=== PATIENT | male | born 1970 | race Caucasian/White ===

== ENCOUNTER 2017-10-21 18:36 | Inpatient (IN) | payer BC ==
[~2017-10-21] VITALS: Ht 180.3 cm; Wt 99.8 kg
[2017-10-21 18:54] VITALS: BP 131/76
--- NOTE | 2017-10-21 19:39 | NUR ---
PT TAKEN TO CT
--- NOTE | 2017-10-21 19:51 | NUR ---
PT RETURN TO THE ER LOBBY FROM CT
--- NOTE | 2017-10-21 19:59 | NUR ---
To bed 3.
--- NOTE | 2017-10-21 20:00 | NUR ---
PATIENT PRESENTS TO ED WITH PAIN ON RIGHT SIDE PAIN AND v X5. N/V/D; SKIN IS PINK/WARM/DRY; AAOX4 WITH EVEN AND STEADY GAIT; LUNGS CLEAR BL; HR EVEN AND REGULAR; PT DENIES CP, SOB, OR COUGH AT THIS TIME; PATIENT STATES PAIN OF 9/10 AT THIS TIME; VSS; PATIENT POSITIONED FOR COMFORT; HOB ELEVATED; BEDRAILS UP X2; BED DOWN. ER MD MADE AWARE OF PT STATUS.
[2017-10-21 20:16] LABS: BASOPHILS # (AUTO) 0.2 K/uL (0.00-0.22); BASOPHILS % (AUTO) 1.4 % (0.0-2.0); EOSINOPHILS # (AUTO) 0.1 K/uL (0-0.4); EOSINOPHILS % (AUTO) 0.8 % (0.0-4.0); HEMATOCRIT 48.6 % (36-52); HEMOGLOBIN 15.9 g/dL (12.0-18.0); LYMPHOCYTES # (AUTO) 0.3 K/uL (2.0-11.5); LYMPHOCYTES % (AUTO) 2.7 % (20.5-51.1); MEAN CORPUSCULAR HEMOGLOBIN 27 pg (27-31); MEAN CORPUSCULAR HGB CONC 33 g/dL (33-37); MEAN CORPUSCULAR VOLUME 83 fL (80-94); MONOCYTES % (AUTO) 0.3 % (1.7-9.3); NEUTROPHILS # (AUTO) 11.2 K/uL (1.8-7.7); NEUTROPHILS % (AUTO) 94.8 % (42.2-75.2); PLATELET COUNT (AUTO) 339 K/uL (140-450); RED BLOOD CELL COUNT(AUTO) 5.86 MIL/uL (4.20-6.10); RED CELL DISTRIBUTION WIDTH 11.5 % (11.6-13.7); WHITE BLOOD COUNT (AUTO) 11.8 K/uL (4.8-10.8)
--- NOTE | 2017-10-21 20:27 | NUR ---
Dr. Ramsey evaluating patient.
[2017-10-21 20:31] LABS: ANION GAP 17.2 (8-16); CARBON DIOXIDE 25.6 mmol/L (21-32); CREATININE 1.3 mg/dL (0.7-1.3); POTASSIUM 3.8 mmol/L (3.5-5.1)
[2017-10-21] MEDS ORDERED: PIPERACILLIN/TAZOBACTAM 3.375 GM in DEXTROSE 5% 50 ML IV ONE (20:35)
[2017-10-21] MEDS ORDERED: ONDANSETRON 4 MG/2 ML VIAL IVP ONE (20:35)
[2017-10-21] MEDS ORDERED: MORPHINE SULFATE 4 MG/ML SYR IVP ONE (20:35)
[2017-10-21 20:37] LABS: ALBUMIN 4.1 g/dL (3.4-5.0); TOTAL BILIRUBIN 2.1 mg/dL (0.0-1.0)
[2017-10-21] MEDS ORDERED: NACL 0.9% 1,000 ML IV ONE (20:40)
[2017-10-21] MEDS ORDERED: PIPERACILLIN/TAZOBACTAM 3.375 GM VIAL IV ONE (20:54)
[2017-10-21] MEDS ORDERED: ACETAMINOPHEN 325 MG TAB PO PRN (21:00)
[2017-10-21] MEDS ORDERED: KETOROLAC 30 MG/ML VIAL IVP PRN (21:00)
[2017-10-21] MEDS ORDERED: DOCUSATE SODIUM 100 MG GELCAP PO PRN (21:00)
[2017-10-21] MEDS ORDERED: MORPHINE SULFATE 4 MG/ML SYR IVP PRN (21:00)
--- NOTE | 2017-10-21 21:10 | NUR ---
X-Ray at bedside.
[2017-10-21 21:33] LABS: CHOL/HDL RATIO 4.9 (1-4.5); MAGNESIUM 1.8 mg/dL (1.8-2.4); PHOSPHORUS 1.7 mg/dL (2.5-4.9); THYROID STIMULATING HORMONE 0.53 uIU/mL (0.34-3.74)
[2017-10-21] MEDS ORDERED: ACETAMINOPHEN 325 MG TAB ONE (21:40)
[2017-10-21 21:41] LABS: PROTHROMBIN TIME 10.7 secs (10.8-13.4)
--- NOTE | 2017-10-21 21:43 | NUR ---
Patient will be admitted to care of DR DIETZ. Admited to TELE. Will go to [id number]. Belongings list completed. Report to EUNICE MAR .
[2017-10-21] MEDS: NACL 0.9% 1,000 ML IV SCH (22:01)
[2017-10-21 22:50] VITALS: BP 109/72
[2017-10-21] MEDS ORDERED: CLINDAMYCIN 600 MG/4 ML VIAL ONE (23:25)
[2017-10-21] MEDS ORDERED: MIDAZOLAM 2 MG/2 ML VIAL ONE (23:42)
--- NOTE | 2017-10-21 23:42 | NUR ---
PT. WHEELED OUT OF UNIT TO OR. CLINDAMYCIN IVP 600 MG. FOR 0000 ORDERED SENT WITH PT. AND GAVE TO OR TECH CELINE. PT. AWAKE AND ALERT. CONSENT SIGNED FOR LULU DURAN AND EXPLAINED PROCEDURE BY Ky CLINE
[2017-10-21] MEDS ORDERED: MEPERIDINE 50 MG/ML SYR ONE (23:43)
[2017-10-21] MEDS ORDERED: fentaNYL 0.05 MG/ML VIAL ONE (23:43)
[2017-10-21] MEDS ORDERED: ROCURONIUM 50 MG/5 ML VIAL IV ONE (23:45)
[2017-10-21] MEDS ORDERED: SUCCINYLCHOLINE CHLORIDE 200 MG/10 ML VIAL IVP ONE (23:45)
[2017-10-21] MEDS ORDERED: PROPOFOL 200 MG/20 ML VIAL IV ONE (23:45)
[2017-10-21] MEDS ORDERED: ONDANSETRON 4 MG/2 ML VIAL ONE (23:45)
[2017-10-21] MEDS ORDERED: SEVOFLURANE 250 ML BTL INH ONE (23:45)
[2017-10-21] MEDS ORDERED: DEXAMETHASONE 4 MG/ML VIAL ONE (23:45)
[2017-10-21] MEDS ORDERED: LACTATED RINGERS 1,000 ML IV SCH (23:47)
[2017-10-21] MEDS ORDERED: HYDROmorphone PFS 2 MG/ML SYR IVP PRN (23:50)
[2017-10-21] MEDS ORDERED: ONDANSETRON 4 MG/2 ML VIAL IVP PRN (23:50)
[2017-10-21] MEDS ORDERED: MEPERIDINE 25 MG/ML SYR IVP PRN (23:50)
[2017-10-21] MEDS ORDERED: diphenhydrAMINE 50 MG/ML VIAL IVP PRN (23:50)
[2017-10-22] VITALS (9 sets, daily range): BP systolic 108–137; BP diastolic 66–92
[2017-10-22] MEDS ORDERED: BUPIVACAINE-MPF 0.25% 30 ML VIAL INJ ONE (00:12)
[2017-10-22] MEDS ORDERED: MEPERIDINE 25 MG/ML SYR ONE (01:48)
--- NOTE | 2017-10-22 02:08 | NUR ---
RECEIVED REPORT FROM OR NURSE. PT RESTING COMFORTABLY IN BED, SPO2 93% ON O2 2L NC, RR 16 EVEN AND UNLABORED. PT HAD LAP APPY WITH 3 INCISIONS, [address], CLEAN DRY AND INTACT. VS NOTED, BP 125/78, HR 109, SPO2 93% ON O2 2L NC, RR 16, TEMP 98.9. PT C/O 6/10 TOLERABLE ABD AND BACK PAIN, PT WAS MEDICATED IN RECOVERY, WILL MONITOR. WAS NOTIFIED TO NOTIFY DR BERMUDEZ IF BP IS LOW, PRESCRIPTION IS ON THE CHART. WILL GIVE REPORT TO PT'S PRIMARY RN
--- NOTE | 2017-10-22 02:23 | NUR ---
RECEIVED PT. AWAKE AND ALERT, ORIENTED X 4 NO PAIN AT THIS TIME. SISTER IN HERE VISITING FROM OUT OF TOWN. CALL LIGHT WITH IN REACH. VS WITH IN NORMAL LIMITS.
[2017-10-22] MEDS: NACL 0.9% 1,000 ML IV SCH ×3 (03:44→15:41)
--- NOTE | 2017-10-22 03:46 | NUR ---
PT. COMPLAINED OF SURGICAL SITE PAIN. REQUESTED FOR MEDICATION AT THIS TIME. MEDICATED WITH DILAUDID 0.5 MG. ORDERED.A/O X 4.
--- NOTE | 2017-10-22 04:30 | NUR ---
PT. AM PERSONAL HYGIENE RENDERED BY CNAS. AWAKE AND ALERT. ABLE TO VERBALIZE SIMPLE NEEDS. NO COMPLAINTS AT THIS TIME. MEDICATED EARLIER FOR S/P LAP. APPY SITE PAIN. ABLE TO USE CALL LIGHT FOR HELP.
[2017-10-22] MEDS: CLINDAMYCIN 600 MG in DEXTROSE 5% 50 ML IV SCH ×3 (05:51)
--- NOTE | 2017-10-22 06:32 | NUR ---
ENCOURAGED PT. TO USE SPIROMETER FOR LUNG EXPANSION. NO SOB. NO PAIN AT THIS TIME. CALL LIGHT WITH IN REACH. NO BLEEDING TO SURGICAL SITE. VERBALIZING WELL.
[2017-10-22 07:08] LABS: HEMATOCRIT 41.3 % (36-52); HEMOGLOBIN 14.1 g/dL (12.0-18.0); MEAN CORPUSCULAR HEMOGLOBIN 28 pg (27-31); MEAN CORPUSCULAR HGB CONC 34 g/dL (33-37); MEAN CORPUSCULAR VOLUME 83 fL (80-94); PLATELET COUNT (AUTO) 285 K/uL (140-450); RED BLOOD CELL COUNT(AUTO) 4.98 MIL/uL (4.20-6.10); RED CELL DISTRIBUTION WIDTH 11.9 % (11.6-13.7); WHITE BLOOD COUNT (AUTO) 16.9 K/uL (4.8-10.8)
--- NOTE | 2017-10-22 07:17 | NUR ---
ENDORSED TO THE NEXT RN FOR CONTINUITY OF CARE. SLEEPING. WOKE UP EASILY WHEN TOUCHED . NO PAIN AT THIS TIME. SURGICAL SITE INTACT AND NO BLEEDING. TELEMETRY MONITORING.
--- NOTE | 2017-10-22 07:18 | NUR ---
RECEIVED REPORT FROM THE VISITOR SERVICE ASSISTANT NURSE FOR CONTINUITY OF CARE. PT IS AWAKE AND ORIENTED. INTRODUCED MYSELF AND UPDATED THE BOARD. S/P LAP APPENDECTOMY. 3 INCISION WITH BAND AIDS COVERING. IV ON L HAND 20G NS 140ML/HR. PT IS AMBULATORY. NO BM OR FLATUS OF YET. NC O2 2L. V/S WITHIN NORMAL RANGE. C/O OF PAIN 11/22. WILL MEDICATE WITH MORNING MEDS. PLAN FOR TODAY, AMBULATION AND CONTROL PAIN. WILL CONTINUE TO MONITOR PT.
--- NOTE | 2017-10-22 07:28 | NUR ---
INFORMED RESIDENT OF FLAGYL 500 MG IV THAT WAS PLACED IN THE NURSING ORDER FOR 0600. PRESENT RESIDENT MD RE-ORDERED IT UNDER MD ORDERS. INFORMED INCOMING RN FOR CHANGES. AWARE.
[2017-10-22 07:42] LABS: ANION GAP 14.4 (8-16); CARBON DIOXIDE 26.2 mmol/L (21-32); CREATININE 1.1 mg/dL (0.7-1.3); POTASSIUM 4.6 mmol/L (3.5-5.1)
[2017-10-22] MEDS ORDERED: metroNIDAZOLE 500 MG/NS PREMIX 100 ML IV SCH ×3 (08:15→13:00)
[2017-10-22] MEDS: HYDROcodone/APAP 7.5/325 MG 1 TAB PO PRN ×4 (08:18→21:26)
--- NOTE | 2017-10-22 08:20 | NUR ---
STUDENT RN AND INSTRUCTOR GAVE PAIN MED AND LEVAQUIN. PT TOLERATED WELL.
[2017-10-22] MEDS ORDERED: LEVOFLOXACIN 750 MG/D5W PREMIX 150 ML IV SCH ×2 (09:00)
[2017-10-22 09:22] LABS: LYMPHOCYTES % (MANUAL) 4 % (20-46); MONOCYTES % (MANUAL) 2 % (5-12)
--- NOTE | 2017-10-22 09:24 | NUR ---
ORDER FOR FLAGYL ONCE IS IN, THE MISSED 0600 DOSE. CALLED PHARMACIST. OK TO GIVE NOW AND PUSH BACK 1300 DOSE TO 1400. CURRENTLY LEVAQUIN IS GOING IN. WILL WAIT UNTIL IT FINISHES AND THEN HANG THE FLAGYL.
--- NOTE | 2017-10-22 09:28 | NUR ---
PATIENT HAS BEEN SCREENED AND CATEGORIZED MODERATE NUTRITION RISK. PATIENT WILL BE SEEN WITHIN 3-5 DAYS OF ADMISSION. 10/24/17-10/26/[address]
--- NOTE | 2017-10-22 10:10 | NUR ---
FINISHED LEVAQUIN. ADMINISTERED FLAGYL. TOLERATING WELL. PT NOW AMBULATING IN THE HALLWAY. TOLERATING WELL. WILL CONTINUE TO MONITOR PT.
--- NOTE | 2017-10-22 12:30 | NUR ---
TOOK SAMPLE OF URINE TO THE LAB.
[2017-10-22 13:36] LABS: APPEARANCE,URINE CLEAR (CLEAR); BILIRUBIN,URINE NEGATIVE (NEGATIVE); BLOOD, URINE 2+ (NEGATIVE); COLOR,URINE YELLOW (YELLOW); LEUKOCYTE ESTERASE ,URINE NEGATIVE (NEGATIVE); NITRITE, URINE NEGATIVE (NEGATIVE); UGLUCOSE NEGATIVE (NEGATIVE)
[2017-10-22 13:42] LABS: BARBITURATE, URINE NEG. ng/ml (NEG <=200); BENZODIAZEPINE, URINE POS. ng/mL (NEG <=200); CANNABINOID, URINE NEG. ng/mL (NEG <=50); COCAINE, URINE NEG. ng/mL (NEG <=300); OPIATE, URINE POS. ng/mL (NEG <=2000); PHENCYCLIDINE SCREEN,URINE NEG. ng/mL (NEG <=25)
--- NOTE | 2017-10-22 14:04 | NUR ---
PT FAMILY VISITING. NO SIGNS OF DISTRESS. WILL CONTINUE TO MONITOR PT.
--- NOTE | 2017-10-22 15:58 | NUR ---
PT SLEEPING SOUNDLY. NO SIGNS OF DISTRESS. WILL CONTINUE TO MONITOR PT.
[2017-10-22 16:24] LABS: RBC,URINE 11-20 (MOD) /HPF (0-5); WBC,URINE 0-5 (RARE) /HPF (0-5)
[2017-10-22] MEDS ORDERED: NACL 0.9% 500 ML IV SCH (18:40)
--- NOTE | 2017-10-22 19:25 | NUR ---
RECEIVED REPORT FROM DAY SHIFT NURSE. AAOX4. ON O2 AT 2 L/MIN. IV TO LEFT HAND #20G, NS AT 140 ML/HR. PT HAS ORDER FOR CT CHEST ANGIO WITH AND WITHOUT CONTRAST, CT ABDOMEN/PELVIS WITH CONTRAST. PT NEEDS ANOTHER IV LINE FOR THE PROCEDURE. INSERTED IV TO LEFT FA #20G, GOOD FLUSH AND BLOOD RETURN. NO C/O OF SOB AT THIS TIME. PT STATED HE HAS ABDOMINAL PAIN 5/10 BUT REFUSED PAIN MEDS AT THIS TIME. CALL LIGHT WITHIN REACH. WILL CONTINUE TO MONITOR.
--- NOTE | 2017-10-22 19:26 | NUR ---
PT HAS 3 ABDOMINAL INCISION WITH DRESSING. DRESSING CLEAN, DRY AND INTACT. NO BLEEDING NOTED.
--- NOTE | 2017-10-22 19:28 | NUR ---
PT HAS AN ORDER FOR NS 500 ML AND LOVENOX 40 MG SUBQ. NEED TO CLARIFY ORDERS WITH DR. BERMUDEZ. WILL PAGE DR. BERMUDEZ.
--- NOTE | 2017-10-22 19:30 | NUR ---
PAGED DR. BERMUDEZ. WAITING FOR CALL BACK.
--- NOTE | 2017-10-22 19:35 | NUR ---
RECEIVED CALL FROM DR. BERMUDEZ. ORDERED NS 500 ML BOLUS NOW. LOVENOX 40 MG SUBQ NOW THEN DAILY. DR. BERMUDEZ D/C ORDER FOR CT CHEST ANGIOGRAM, PT HAS NO SOB. V/S TAKEN, WNL. CALL LIGHT WITHIN REACH. WILL CONTINUE TO MONITOR.
--- NOTE | 2017-10-22 19:45 | NUR ---
PAGED DR. BERMUDEZ TO CLARIFY ORDER FOR CT ABDOMEN/PELVIS.
--- NOTE | 2017-10-22 19:48 | NUR ---
RECEIVED CALL FROM DR. BERMUDEZ. D/C ORDER FOR CT ABDOMEN/PELVIS WITH CONTRAST. TOÑO FROM CT MADE AWARE.
[2017-10-22] MEDS ORDERED: ENOXAPARIN 40 MG/0.4 ML SYR SUBQ ONE (20:44)
[2017-10-22] MEDS ORDERED: ENOXAPARIN 40 MG/0.4 ML SYR SUBQ SCH (21:00)
--- NOTE | 2017-10-22 21:30 | NUR ---
PT C/O PAIN 12/22. NORCO GIVEN ORDERED. PT STATED THAT HE'S HAVING A LITTLE BIT OF SOB. CHECKED V/S, WNL. O2 SAT 96% AT 2 L/MIN VIA NC. PT IS SITTING ON THE BED. WILL CONTINUE TO MONITOR.
--- NOTE | 2017-10-22 21:32 | NUR ---
PT STATED MENDEZ THE FEELS BETTER AND NO SOB. PT STILL SITTING ON THE BED. INSTRUCTED PT TO CALL ME IF HE HAS SOB AND PAIN. PT VERBALIZED UNDERSTANDING. WILL CONTINUE TO MONITOR. CALL LIGHT WITHIN REACH.
--- NOTE | 2017-10-22 21:40 | NUR ---
CHECKED ON PT. PT LYING ON BED. NO C/O SOB. ALL NEEDS MET AT THIS TIME. CALL LIGHT WITHIN REACH.
--- NOTE | 2017-10-22 23:45 | NUR ---
PT SLEEPING BUT EASILY AROUSABLE. NO S/S OF PAIN. NO S/S OF RESP DISTRESS NOTED. CALL LIGHT WITHIN REACH.
[2017-10-23] VITALS: BP 119/80
--- NOTE | 2017-10-23 00:05 | NUR ---
PT REFUSED IV ANTIBIOTIC ZOSYN. EXPLAINED TO PT THE USE OF ANTIBIOTIC BUT STILL REFUSED.
[2017-10-23] MEDS: NACL 0.9% 1,000 ML IV SCH ×4 (01:42→23:02)
--- NOTE | 2017-10-23 02:40 | NUR ---
PT LYING IN BED, AWAKE. NO C/O SOB OR PAIN NOTED. ALL NEEDS MET AT THIS TIME. CALL LIGHT WITHIN REACH.
[2017-10-23 04:00] VITALS: BP 122/78
[2017-10-23] MEDS ORDERED: PIPERACILLIN/TAZOBACTAM 4.5 GM VIAL IV ONE (04:54)
--- NOTE | 2017-10-23 05:00 | NUR ---
PT AWAKE, IN BED. NO C/O PAIN. NO RESPIRATORY DISTRESS NOTED. ALL NEEDS MET AT THIS TIME. CALL LIGHT WITHIN REACH.
[2017-10-23] MEDS: HYDROcodone/APAP 7.5/325 MG 1 TAB PO PRN ×5 (05:05→22:51)
[2017-10-23] MEDS: PIPERACILLIN/TAZOBACTAM 4.5 GM in DEXTROSE 5% 100 ML IV SCH ×6 (05:05→23:02)
[2017-10-23 06:59] LABS: BASOPHILS # (AUTO) 0.1 K/uL (0.00-0.22); BASOPHILS % (AUTO) 1.3 % (0.0-2.0); EOSINOPHILS # (AUTO) 0.1 K/uL (0-0.4); EOSINOPHILS % (AUTO) 0.9 % (0.0-4.0); HEMATOCRIT 38.4 % (36-52); HEMOGLOBIN 12.9 g/dL (12.0-18.0); LYMPHOCYTES % (AUTO) 9.3 % (20.5-51.1); MEAN CORPUSCULAR HEMOGLOBIN 28 pg (27-31); MEAN CORPUSCULAR HGB CONC 34 g/dL (33-37); MEAN CORPUSCULAR VOLUME 84 fL (80-94); MONOCYTES # (AUTO) 0.7 K/uL (0.8-1.0); MONOCYTES % (AUTO) 6.2 % (1.7-9.3); NEUTROPHILS # (AUTO) 8.7 K/uL (1.8-7.7); NEUTROPHILS % (AUTO) 82.3 % (42.2-75.2); PLATELET COUNT (AUTO) 218 K/uL (140-450); RED BLOOD CELL COUNT(AUTO) 4.59 MIL/uL (4.20-6.10); RED CELL DISTRIBUTION WIDTH 11.9 % (11.6-13.7); WHITE BLOOD COUNT (AUTO) 10.6 K/uL (4.8-10.8)
--- NOTE | 2017-10-23 07:25 | NUR ---
RECEIVED REPORT FROM NIGHTSHIFT NURSE. PATIENT IS ASLEEP BUT AROUSABLE AT THIS TIME. PATIENT A&OX4. PATIENT'S DRESSING IS DRY ON ABDOMEN. PATIENT HAS IV ACCESS ON LEFT FOREARM. PATIENT BREATHING IS WITHIN NORMAL LIMITS AND NO SIGNS OF RESPIRATORY DISTRESS OR RESPIRATORY DEPRESSION. UPDATED BOARD IN PATIENT'S ROOM. WILL CONTINUE TO MONITOR PATIENT.
--- NOTE | 2017-10-23 07:25 | NUR ---
ENDORSED PT TO DAY SHIFT NURSE. PT IN STABLE CONDITION.
[2017-10-23 08:00] VITALS: BP 119/83
[2017-10-23 08:20] LABS: CARBON DIOXIDE 25.8 mmol/L (21-32); CREATININE 0.9 mg/dL (0.7-1.3); POTASSIUM 3.8 mmol/L (3.5-5.1)
[2017-10-23] MEDS: ENOXAPARIN 40 MG/0.4 ML SYR SUBQ SCH (09:00)
[2017-10-23] MEDS ORDERED: ALBUTEROL SULFATE/IPRATROPIU 3 ML SOL IH PRN (10:35)
[2017-10-23 11:36] LABS: PHOSPHORUS 1.7 mg/dL (2.5-4.9)
--- NOTE | 2017-10-23 12:00 | NUR ---
PATIENT RESTING IN BED. NO SIGNS OF RESPIRATORY DISTRESS OR RESPIRATORY DEPRESSION. NO COMPLAINTS OF PAIN AT THIS TIME. WILL CONTINUE TO MONITOR PATIENT.
[2017-10-23] MEDS: ALBUTEROL SULFATE/IPRATROPIU 3 ML SOL IH SCH ×4 (12:15→23:00)
[2017-10-23 12:19] LABS: T4 (THYROXINE) 9.2 ug/dL (4.5-12.0)
--- NOTE | 2017-10-23 12:20 | NUR ---
PLACED PT BACK ON 2L N/C AFTER TX.
--- NOTE | 2017-10-23 13:10 | NUR ---
PATIENT SAYS, "I FEEL REALLY HOT." PATIENT DOES NOT WANT IV FLUIDS CONNECTED TO HIM. PROVIDED PATIENT WITH ICE PACKS TO COOL OFF. PATIENT'S ORAL TEMPERATURE IS 98.7. WILL CONTINUE TO MONITOR PATIENT.
--- NOTE | 2017-10-23 15:00 | NUR ---
PATIENT RESTING IN BED AT THIS TIME. NO SIGNS OF RESPIRATORY DISTRESS OR RESPIRATORY DEPRESSION. WILL CONTINUE TO MONITOR PATIENT.
--- NOTE | 2017-10-23 15:13 | NUR ---
FOUND PT OFF OF N/C AND WAS SATTING AT 91. GAVE PT TX THEN PLACED PT BACK ON 2L N/C NOW SATTING IN HIGH 90'S
[2017-10-23 16:00] VITALS: BP 121/85
--- NOTE | 2017-10-23 16:30 | NUR ---
PATIENT RESTING AT THIS TIME. PATIENT DOES NOT COMPLAIN OF PAIN. WILL CONTINUE TO MONITOR PATIENT.
[2017-10-23] MEDS: ONDANSETRON 4 MG/2 ML VIAL IM/IVP PRN (18:31)
--- NOTE | 2017-10-23 18:31 | NUR ---
PATIENT COMPLAINS OF NAUSEA AT THIS TIME. ADMINISTERED ANTIEMETIC MEDICATIONS TO PATIENT FOR NAUSEA.
--- NOTE | 2017-10-23 19:20 | NUR ---
GAVE PATIENT REPORT TO NIGHTSHIFT NURSE PATIENT IN STABLE CONDITION.
--- NOTE | 2017-10-23 19:21 | NUR ---
RECEIVED PT AWAKE ON BED, SEEN EARLIER ON THE HALLWAY AMBULATING ACCOMPANIED BY GIRLFRIEND, DENIES ABDOMINAL PAIN BUT COMPLAINING OF UPPER BACK PAIN, SAID CANT GET COMFORTABLE, REPOSITION TO LEFT SIDE AND SEMI-FOWLERS POSITION, SAT-95% ON ROOM AIR, NO SOB NOTED, ABDOMINAL DRESSING DRY AND INTACT, PT SAID HE IS PASSING GAS, WITH ACTIVE BOWEL SOUNDS, IVF INFUSING WELL, WILL ADMINISTER DUE ZOSYN IVPB, PLAN OF CARE DISCUSSED, CALL LIGHT WITHIN REACH.
[2017-10-23 20:00] VITALS: BP 140/85
--- NOTE | 2017-10-23 22:55 | NUR ---
PT SEEN AMBULATING ON THE HALLWAY, TOLERATING WELL, MEDICATED WITH NORCO AFTERWARDS, TOLERATING ORAL FLUIDS, VOIDING FREELY PER URINAL, MONITORED CLOSELY.
--- NOTE | 2017-10-23 23:26 | NUR ---
ORDER CHANGE Q4 PRN, PT BS ARE BILAT CLEAR, NO HX OR ASTHMA OR COPD.PT NEEDS IS, BUT HE SAID THAT HE DID IN THE MORNING.
[2017-10-24] VITALS: BP 144/92
--- NOTE | 2017-10-24 | NUR ---
PT SLEEPING, EASILY AROUSABLE, VITAL SIGNS STABLE, SAT-94% ON ROOM AIR, NO SOB NOTED, CONTINUE TO MONITOR CLOSELY.
[2017-10-24] MEDS: HYDROcodone/APAP 7.5/325 MG 1 TAB PO PRN ×6 (04:01→21:57)
[2017-10-24] MEDS: ONDANSETRON 4 MG/2 ML VIAL IM/IVP PRN ×2 (04:04→11:09)
--- NOTE | 2017-10-24 04:05 | NUR ---
PT AWAKE, COMPLAINING OF NAUSEA BUT NO VOMITING AND ABDOMINAL PAIN, MEDICATED PRN WITH NORCO AND ZOFRAN, VERBALIZED PASSING GAS, BAND AID X2 DRY AND INTACT, MONITORED CLOSELY.
[2017-10-24] MEDS: PIPERACILLIN/TAZOBACTAM 4.5 GM in DEXTROSE 5% 100 ML IV SCH ×3 (05:27→18:09)
[2017-10-24] MEDS: NACL 0.9% 1,000 ML IV SCH (05:28)
--- NOTE | 2017-10-24 06:31 | NUR ---
PT SEEN AMBULATING ON THE HALLWAY, TOLERATED WELL, VERBALIZED PASSING GAS BUT NO BM YET, IV ANTIBIOTIC INFUSING WELL.
[2017-10-24 06:58] LABS: BASOPHILS # (AUTO) 0.1 K/uL (0.00-0.22); BASOPHILS % (AUTO) 1.2 % (0.0-2.0); EOSINOPHILS # (AUTO) 0.1 K/uL (0-0.4); EOSINOPHILS % (AUTO) 1.1 % (0.0-4.0); HEMATOCRIT 38.8 % (36-52); HEMOGLOBIN 13.2 g/dL (12.0-18.0); LYMPHOCYTES # (AUTO) 0.9 K/uL (2.0-11.5); LYMPHOCYTES % (AUTO) 11.1 % (20.5-51.1); MEAN CORPUSCULAR HEMOGLOBIN 28 pg (27-31); MEAN CORPUSCULAR HGB CONC 34 g/dL (33-37); MEAN CORPUSCULAR VOLUME 82 fL (80-94); MONOCYTES # (AUTO) 0.6 K/uL (0.8-1.0); MONOCYTES % (AUTO) 7.2 % (1.7-9.3); NEUTROPHILS # (AUTO) 6.5 K/uL (1.8-7.7); NEUTROPHILS % (AUTO) 79.4 % (42.2-75.2); PLATELET COUNT (AUTO) 257 K/uL (140-450); RED BLOOD CELL COUNT(AUTO) 4.75 MIL/uL (4.20-6.10); RED CELL DISTRIBUTION WIDTH 11.6 % (11.6-13.7); WHITE BLOOD COUNT (AUTO) 8.2 K/uL (4.8-10.8)
--- NOTE | 2017-10-24 07:10 | NUR ---
RECEIVED PT REPORT AT BEDSIDE. PT ASLEEP BUT AROUSABLE. NO S/S OF DISTRESS. PT ON RA , NO SOB. IV LINE LEFT FOREARM INTACT WITH IVF INFUSING WELL. 3 INCISIONS ON ABDOMEN COVERED WITH BAND-AID, CLEAN DRY AND INTACT. BED LOWERED W CALL LIGHT IN REACH, WILL CONTINUE TO MONITOR
--- NOTE | 2017-10-24 07:25 | NUR ---
PT AWAKE, NO SIGNS OF DISTRESS, BEDSIDE REPORT GIVEN TO ZAID MENON FOR CONTINUITY OF CARE.
[2017-10-24 07:46] LABS: ANION GAP 11.1 (8-16); CARBON DIOXIDE 28.3 mmol/L (21-32); CREATININE 0.9 mg/dL (0.7-1.3); POTASSIUM 3.4 mmol/L (3.5-5.1)
[2017-10-24 08:00] VITALS: BP 121/77
[2017-10-24] MEDS: ENOXAPARIN 40 MG/0.4 ML SYR SUBQ SCH (08:50)
[2017-10-24] MEDS ORDERED: IBUP-2213 PO (08:55)
[2017-10-24] MEDS ORDERED: ONDA4ODT1 SL (08:55)
[2017-10-24] MEDS ORDERED: DOCU-299 PO (08:55)
[2017-10-24] MEDS ORDERED: ACET-9529 PO (08:55)
--- NOTE | 2017-10-24 09:30 | NUR ---
PT AMBULATED AROUND THE UNIT NO S/S OF DISTRESS NOTED
--- NOTE | 2017-10-24 14:06 | NUR ---
CM NOTE INITIAL REVIEW FAXED TO [facility] [employer] / FAX# [phone]
[2017-10-24 16:00] VITALS: BP 145/89
--- NOTE | 2017-10-24 17:45 | NUR ---
PT POTASSIUM WAS 3.4, DR RODNEY NOTIFIED PATIENT TOOK SHOWER, WILL CONTINUE W PLAN OF CARE
--- NOTE | 2017-10-24 19:30 | NUR ---
SEEN PT AWAKE, ALERT AND ORIENTED APPEARS COMFORTABLE. PT IS ON ISOLATION FOR MDRO/ESBL OF BLOOD. ISOLATION PRECAUTION REINFORCED. PT DENIES ANY NEEDS AT THIS TIME. SAFETY ENSURED. CALL LIGHT W/IN REACH.
--- NOTE | 2017-10-24 19:37 | NUR ---
PT REPORT GIVEN AT BEDSIDE. PT IN STABLE CONDITION
[2017-10-24 20:00] VITALS: BP 143/86
--- NOTE | 2017-10-24 21:57 | NUR ---
STUDENT NURSE CHECKED PT'S VITAL SIGNS EARLIER. SEEN PT AWAKE ASKING FOR PAIN MEDICINE. INITIAL ASSESSMENT DONE. IV ON LEFT FOREARM APPEARS RED, PUFFY. IVF STOPPED. WILL INSERT NEW IV. NORCO PO GIVEN ORDERED. TEACHINGS PROVIDED. PT STATES HIS LAST BM WAS WHEN HE WAS ADMITTED. OFFERED STOOL SOFTENER BUT SAID "IN THE MORNING". PT ASKED IF HE USES HIS INCENTIVE SPIROMETER. HE SAID "YES". ASKED HOW MUCH DOES HE GO UP TO. PT SAID "1500 AND SOMETIMES 1000." PT AWARE THAT HE NEEDS TO USE IT 10 TIMES EVERY HR WHILE AWAKE. PT DENIES ANY OTHER NEEDS RIGHT NOW. CALL LIGHT W/IN REACH.
--- NOTE | 2017-10-25 00:25 | NUR ---
SEEN PT APPEARS ASLEEP BUT EASILY AROUSABLE. NEW IV IN PLACED ON LEFT HAND G22 W/ GOOD BLOOD RETURN. PT TOLERATED PROCEDURE. IVPB ATB GIVEN ORDERED W/ TEACHINGS. PT SAID HE WENT TO THE BATHROOM SEVERAL TIMES.
[2017-10-25] MEDS: PIPERACILLIN/TAZOBACTAM 4.5 GM in DEXTROSE 5% 100 ML IV SCH ×4 (00:47→19:01)
[2017-10-25] MEDS: HYDROcodone/APAP 7.5/325 MG 1 TAB PO PRN ×3 (03:24→20:11)
[2017-10-25 04:00] VITALS: BP 141/87
--- NOTE | 2017-10-25 04:05 | NUR ---
SEEN PT AWAKE. VITAL SIGNS CHECKED. PT COMPLAINING OF FEELING NAUSEOUS. PT MEDICATED W/ ZOFRAN IVP ORDERED W/ TEACHINGS. PT'S URINAL EMPTIED W/ 200ML. PT KEPT COMFORTABLE.
[2017-10-25] MEDS: ONDANSETRON 4 MG/2 ML VIAL IM/IVP PRN ×2 (04:14→08:55)
[2017-10-25] MEDS ORDERED: IBUPROFEN 600 MG TAB PO PRN (06:50)
--- NOTE | 2017-10-25 07:00 | NUR ---
SEEN PT AMBULATING THE HALLWAY. SAFETY ENSURED.
[2017-10-25 07:16] LABS: BASOPHILS # (AUTO) 0.2 K/uL (0.00-0.22); BASOPHILS % (AUTO) 2.1 % (0.0-2.0); EOSINOPHILS # (AUTO) 0.2 K/uL (0-0.4); EOSINOPHILS % (AUTO) 2.3 % (0.0-4.0); HEMATOCRIT 40.7 % (36-52); HEMOGLOBIN 13.7 g/dL (12.0-18.0); LYMPHOCYTES # (AUTO) 1.7 K/uL (2.0-11.5); LYMPHOCYTES % (AUTO) 20.2 % (20.5-51.1); MEAN CORPUSCULAR HEMOGLOBIN 28 pg (27-31); MEAN CORPUSCULAR HGB CONC 34 g/dL (33-37); MEAN CORPUSCULAR VOLUME 83 fL (80-94); MONOCYTES # (AUTO) 0.7 K/uL (0.8-1.0); MONOCYTES % (AUTO) 8.4 % (1.7-9.3); NEUTROPHILS # (AUTO) 5.7 K/uL (1.8-7.7); PLATELET COUNT (AUTO) 325 K/uL (140-450); RED BLOOD CELL COUNT(AUTO) 4.93 MIL/uL (4.20-6.10); RED CELL DISTRIBUTION WIDTH 11.8 % (11.6-13.7); WHITE BLOOD COUNT (AUTO) 8.5 K/uL (4.8-10.8)
[2017-10-25 07:18] LABS: ANION GAP 11.6 (8-16); CARBON DIOXIDE 28.8 mmol/L (21-32); POTASSIUM 3.4 mmol/L (3.5-5.1)
--- NOTE | 2017-10-25 07:25 | NUR ---
RECEIVED PATIENT REPORT. PATIENT AWAKE WATCHING TELEVISION. NO S/S OF DISTRESS. NO C/O PAIN AT THIS TIME. ABD INCISION WITH CUATE CLEAN, DRY, EVENT PROMOTIONS COORDINATOR. CALL LIGHT WITHIN REACH. WILL CONTINUE TO MONITOR
[2017-10-25 08:00] VITALS: BP 138/92
[2017-10-25] MEDS: ENOXAPARIN 40 MG/0.4 ML SYR SUBQ SCH (09:02)
[2017-10-25] MEDS ORDERED: POTASSIUM CHLORIDE 20% 40 MEQ/15 ML UDC GT SCH (09:24)
--- NOTE | 2017-10-25 11:30 | NUR ---
PATIENT AMBULATING AROUND THE UNIT. NO S/S OF DISTRESS NOTED
--- NOTE | 2017-10-25 13:36 | NUR ---
RECEIVED A CALL FROM NAYELY FROM [employer]. SHE SAID THE CM IS SEEMA. PHONE [phone]. FAX IS [phone]. REF #[id number]. I FAXED INITIAL AND CONCURRENT REVIEWS.
--- NOTE | 2017-10-25 15:00 | NUR ---
PATIENT ASLEEP IN BED. NO S/S OF DISTRESS NOTED
[2017-10-25 16:00] VITALS: BP 145/92
--- NOTE | 2017-10-25 18:50 | NUR ---
PT IS NOT IN THE ROOM
--- NOTE | 2017-10-25 19:24 | NUR ---
PATIENT REPORT GIVEN AT BEDSIDE. PATIENT ENDORSED IN STABLE CONDITION
--- NOTE | 2017-10-25 20:00 | NUR ---
Patient's Plan of Care was discussed and reviewed with ENGINEER TECHNICAL STAFF: JORGE ALBERTO SIMONS.
--- NOTE | 2017-10-25 20:13 | NUR ---
RECD. SITTING ON CHAIR, WATCHING TV. A/OX4. RESPIRATION EVEN AND UNLABORED. IV OF NS AT TKO INFUSING AT 10 ML/HR, LEFT HAND G22. INCISION IN THE ABDOMEN (3), WITH CUATE, OPEN TO AIR, DRY AND CLEAN. ALREADY PASSING GAS BUT NO BM YET, ENCOURAGED TO AMBULATE MORE. PAIN IN THE SITE 08/24, STATED TOLERABLE, WILL CALL NURSE WHEN PAIN INCREASES. PLAN OF CARE FOR THE SHIFT DISCUSSED. VERBALIZED UNDERSTANDING.
[2017-10-26] VITALS: BP 119/69
--- NOTE | 2017-10-26 00:25 | NUR ---
AMBULATED IN THE HALLWAY FOUR TIMES.
[2017-10-26] MEDS: PIPERACILLIN/TAZOBACTAM 4.5 GM in DEXTROSE 5% 100 ML IV SCH ×4 (00:48→17:36)
--- NOTE | 2017-10-26 05:05 | NUR ---
AMBULATED SEVERAL TIMES IN THE HALLWAY.
[2017-10-26] MEDS: ONDANSETRON 4 MG/2 ML VIAL IM/IVP PRN (05:25)
--- NOTE | 2017-10-26 05:25 | NUR ---
NAUSEATED, MEDICATED WITH ZOFRAN 4 MF. IVP BY ZAID SWIFT.
[2017-10-26] MEDS: HYDROcodone/APAP 7.5/325 MG 1 TAB PO PRN ×3 (05:29→23:51)
--- NOTE | 2017-10-26 05:55 | NUR ---
NO NAUSEA NOTED, RESTING COMFORTABLY IN BED.
--- NOTE | 2017-10-26 06:57 | NUR ---
CONDITION REMAIN STABLE. WILL ENDORSE TO AM NURSE FOR CONTINUITY OF CARE.
--- NOTE | 2017-10-26 07:15 | NUR ---
RECEIVED REPORT FROM AM CERTIFIED COMPOSITES TECHNICIAN NURSE AT BEDSIDE FOR CONTINUITY OF CARE.PT IN BED SLEEPING. NO ACUTE DISTRESS NOTED. A/O X 4.PLAN OF CARE DISCUSSED WITH PATIENT. CALL LIGHT WITH IN REACH. PT. DENIES ANY PAIN AT THIS TIME.CALL LIGHT WITHIN REACH. PATIENT WITH IV TO LEFT HAND 22G APPEAR TO BE INFILTRATED .CERTIFIED COMPOSITES TECHNICIAN NURSE TO START NEW LINE. PATENT AND INTACT. WILL CONT TO MONITOR.
--- NOTE | 2017-10-26 07:30 | NUR ---
RIGHT HAND 20G IV STARTED X 1 ATTEMPT. TOLERATED WELL. WILL CONT TO MONITOR.
[2017-10-26 08:00] VITALS: BP 151/91
[2017-10-26] MEDS: POTASSIUM CHLORIDE 20% 40 MEQ/15 ML UDC GT SCH (09:17)
[2017-10-26] MEDS: ENOXAPARIN 40 MG/0.4 ML SYR SUBQ SCH (09:20)
--- NOTE | 2017-10-26 09:25 | NUR ---
ADMINISTERED MORNING MEDICATION SCHEDULED. PT TOLERATED WELL. PATIENT AMBULATING INDEPENDENTLY THROUGH HALLS TOLERATED. WILL CONT TO MONITOR PT.
--- NOTE | 2017-10-26 11:00 | NUR ---
PATIENT IN GOOD SPIRITS AMBULATING AROUND HALLS OF [facility]. NO C/O PAIN. WILL CONT TO MONITOR PT.
--- NOTE | 2017-10-26 12:58 | NUR ---
ADMINISTERED IV ZOSYN ORDERED. PATIENT TOLERATED WELL. IV SITE PATENT AND INTACT. WILL CONT TO MONITOR.
--- NOTE | 2017-10-26 14:02 | NUR ---
FAXED CONCURRENT REVIEW TO [facility] [phone] PHONE SEEMA [phone] X [phone]
--- NOTE | 2017-10-26 15:00 | NUR ---
PATIENT ALERT AND ABLE TO MAKE NEEDS KNOWN. NO ACUTE DISTRESS NOTED. CALL LIGHT WITHIN REACH. WILL CONT TO MONITOR PT. ENCOURAGE PT TO CONTINUE WALKING.
--- NOTE | 2017-10-26 15:08 | NUR ---
10/26/2017 RD INITIAL ASSESSMENT COMPLETED PLEASE REFER TO NUTRITION ASSESSMENT UNDER CARE ACTIVITY FOR ESTIMATED NUTRITIONAL NEEDS. CONTINUE REGULAR DIET TOLERATED. NURSING AND DIETARY STAFF TO ENCOURAGE INCREASED PO INTAKE TOLERATED. RD TO FOLLOW-UP IN 3-5 DAYS PATIENT IS MODERATE RISK. ROGELIO SMITH, KISHA
[2017-10-26 16:00] VITALS: BP 131/92
--- NOTE | 2017-10-26 17:45 | NUR ---
ADMINISTERED NORCO 7.5/325 ORDERED PRN FOR 7/10 ACHING PAIN TO INCISION SITES. PATIENT TOLERATED WELL. CALL LIGHT WITHIN REACH. WILL CONT TO MONITOR.
--- NOTE | 2017-10-26 18:45 | NUR ---
REASSESSED PT PAIN LEVEL STATED 3/10 AND IMPROVED. NORCO ADMINISTRATION EFFECTIVE. WILL CONT TO MONITOR PT.
--- NOTE | 2017-10-26 19:24 | NUR ---
ENDORSED REPORT TO CNA HHA NURSE AT BEDSIDE FOR CONTINUITY OF CARE.
--- NOTE | 2017-10-26 19:25 | NUR ---
RECD. RESTING IN BED, AWAKE, A/OX4. STATED FEELING MUCH BETTER TODAY. RESPIRATION EVEN AND UNLABORED. INCISION IN THE ABDOMEN (3) WITH CUATE, OPEN TO AIR, ALL DRY AND INTACT. VOIDING WELL, PASSING GAS BUT NO BM YET, SUGGESTED PRUNE JUICE BUT DOES NOT WANT IT. WILL INFORM MD. PAIN IN THE ABDOMEN 08/24, WILL MEDICATE ORDERED. PLAN OF CARE FOR THE SHIFT DISCUSSED. VERBALIZED UNDERSTANDING.
--- NOTE | 2017-10-26 21:00 | NUR ---
AMBULATED IN THE HALLWAY FOR 15 MINUTES.
[2017-10-26] MEDS ORDERED: MAGNESIUM HYDROXIDE 2400 MG/30 ML UDC PO PRN (21:10)
[2017-10-27] VITALS: BP 125/65
[2017-10-27] MEDS: PIPERACILLIN/TAZOBACTAM 4.5 GM in DEXTROSE 5% 100 ML IV SCH ×4 (00:04→17:59)
--- NOTE | 2017-10-27 00:05 | NUR ---
IV ABX STARTED. IV TO R HAND NOTED. INTACT AND PATENT. WILL CONTINUE TO MONITOR.
--- NOTE | 2017-10-27 01:00 | NUR ---
SLEEPING COMFORTABLY IN BED.
--- NOTE | 2017-10-27 06:10 | NUR ---
IV ABX STARTED. IV TO R HAND NOTED. INTACT AND PATENT. WILL CONTINUE TO MONITOR.
--- NOTE | 2017-10-27 07:08 | NUR ---
ABLE TO SLEEP WELL. ALL NEEDS ATTENDED. WILL ENDORSE TO AM NURSE FOR CONTINUITY OF CARE.
--- NOTE | 2017-10-27 07:25 | NUR ---
RECEIVED REPORT AT BEDSIDE FROM DIE REPAIR MACHINIST NURSE FOR CONTINUITY OF CARE.
--- NOTE | 2017-10-27 08:00 | NUR ---
INITIAL ASSESSMENT DONE. PATIENT ALERT AND ABLE TO VERBALIZE NEEDS. NO ACUTE DISTRESS NOTED. RESP EVEN AND UNLABORED. PATIENT WITH ACTIVE BOWEL SOUNDS. PATIENT VERBALIZED HE HAD A BM THIS AM. PATIENT WITH IV TO R HAND 22G SL PATENT AND INTACT. PATIENT WITH 3 ABD INCISION WITH CUATE INTACT. NO SWELLING REDNESS OR DRAINAGE.. PATIENT VERBALIZED PAIN AT THIS TIME NORCO TO BE GIVEN. PLAN OF CARE DISCUSSED WITH PATIENT. CALL LIGHT WITHIN REACH. WILL CONT TO MONITOR.
[2017-10-27] MEDS: ONDANSETRON 4 MG/2 ML VIAL IM/IVP PRN (08:07)
[2017-10-27] MEDS: HYDROcodone/APAP 7.5/325 MG 1 TAB PO PRN ×2 (08:07→16:46)
--- NOTE | 2017-10-27 08:07 | NUR ---
ADMINISTERED NORCO ORDERED PRN. PT TOLERATED WELL. Addendum: 10/27/17 at 2013 by Ariella Frances RN ALSO ADMINISTERED ZOFRAN . PT C/O NAUSEA.
[2017-10-27] MEDS: POTASSIUM CHLORIDE 20% 40 MEQ/15 ML UDC GT SCH (09:24)
[2017-10-27] MEDS: ENOXAPARIN 40 MG/0.4 ML SYR SUBQ SCH (09:28)
--- NOTE | 2017-10-27 09:28 | NUR ---
ADMINISTERED SCHEDULED MEDICATIONS ORDERED. PT TOLERATED WELL. WILL CONT TO MONITOR PT.
[2017-10-27] MEDS ORDERED: POTASSIUM CHLORIDE 10 MEQ TABER PO SCH (11:00)
--- NOTE | 2017-10-27 11:41 | NUR ---
ADMINISTERED ZOSYN ORDERED PATIENT TOLERATED WELL. IV LINE PATENT AND INTACT.
[2017-10-27] MEDS: SODIUM PHOS / POTASSIUM PHOS 1 PKT PDR PO SCH ×2 (13:31→17:58)
--- NOTE | 2017-10-27 13:31 | NUR ---
ADMINISTERED NEUTRAPHOS TO PATIENT ORDERED. EXPLAINED TO PATIENT REASON FOR MEDICATION PATIENT VERBALIZED UNDERSTANDING AND AGREEMENT.
--- NOTE | 2017-10-27 14:09 | NUR ---
0900 RECEIVED CALL FROM TEDDY AT [facility] AND STATED THAT AUTHORIZATION HAS BEEN EXTENDED FROM 10/26 THROUGH 10/28/17 FOR PT TO COMPLETE IV ANTIBIOTIC THERAPY.
[2017-10-27 16:00] VITALS: BP 116/77
--- NOTE | 2017-10-27 16:30 | NUR ---
PATIENT ALERT AND ABLE TO MAKE NEEDS KNOWN. NO ACUTE DISTRESS. PATIENT AMBULATING IN HALLWAYS OF UNIT. GAIT STEADY. PT IN GOOD SPIRITS. WILL CONT TO MONITOR PT.
--- NOTE | 2017-10-27 17:59 | NUR ---
ADMINISTERED ZOSYN ORDERED PATIENT TOLERATED WELL. IV LINE PATENT AND INTACT.
--- NOTE | 2017-10-27 19:19 | NUR ---
ENDORSED REPORT TO WATERSHED ENGINEER NURSE AT BEDSIDE FOR CONTINUITY OF CARE. PATIENT STABLE.
--- NOTE | 2017-10-27 19:20 | NUR ---
RECEIVED FROM AM RN IN BED AWAKE AND ALERT. NO COMPLAINT OF ANY PAIN AT THIS TIME. NO SOB. CALL LIGHT WITH IN REACH AND CARE PLANS FOR THE NIGHT DISCUSSED WITH PT. A/O X 4. ABLE TO VERBALIZE SIMPLE NEEDS WELL. NEEDS WILL BE ANTICIPATED AND WILL BE MET. DX. APPENDICITIS. S/P LAP APPY. PT. SEEN AMBULATING WELL IN THE HALLWAY.
--- NOTE | 2017-10-27 22:29 | NUR ---
STILL AWAKE AT THIS TIME. SITTING UP IN BED WATCHING TV. NO COMPLAINTS DONE AT THIS TIME. CALL LIGHT WITH IN REACH AND A/O X 4. NO BLEEDING TO LAP. APPY SITE.
[2017-10-28] MEDS: PIPERACILLIN/TAZOBACTAM 4.5 GM in DEXTROSE 5% 100 ML IV SCH ×5 (00:05→23:42)
[2017-10-28] MEDS: HYDROcodone/APAP 7.5/325 MG 1 TAB PO PRN ×2 (00:05→05:54)
[2017-10-28 00:11] VITALS: BP 126/83
--- NOTE | 2017-10-28 04:40 | NUR ---
SLEEPING STILL. NO RESTLESSNESS. NO COMPLAINTS. CALL LIGHT AT BEDSIDE ALL THE TIME.
[2017-10-28 05:54] VITALS: BP 128/83
[2017-10-28 07:01] LABS: BASOPHILS # (AUTO) 0.2 K/uL (0.00-0.22); BASOPHILS % (AUTO) 1.9 % (0.0-2.0); EOSINOPHILS # (AUTO) 0.3 K/uL (0-0.4); HEMATOCRIT 41.5 % (36-52); LYMPHOCYTES # (AUTO) 2.8 K/uL (2.0-11.5); LYMPHOCYTES % (AUTO) 32.6 % (20.5-51.1); MEAN CORPUSCULAR HEMOGLOBIN 28 pg (27-31); MEAN CORPUSCULAR HGB CONC 34 g/dL (33-37); MEAN CORPUSCULAR VOLUME 83 fL (80-94); MONOCYTES # (AUTO) 0.7 K/uL (0.8-1.0); MONOCYTES % (AUTO) 8.2 % (1.7-9.3); NEUTROPHILS # (AUTO) 4.7 K/uL (1.8-7.7); NEUTROPHILS % (AUTO) 53.3 % (42.2-75.2); PLATELET COUNT (AUTO) 386 K/uL (140-450); RED CELL DISTRIBUTION WIDTH 11.6 % (11.6-13.7); WHITE BLOOD COUNT (AUTO) 8.7 K/uL (4.8-10.8)
--- NOTE | 2017-10-28 07:12 | NUR ---
RECEIVED REPORT FROM BEEF TAGGER RN AT BEDSIDE FOR CONTINUITY OF CARE, PATIENT AOX4. DENIES PAIN AT THE MOMENT, R HAND IV INTACT, PATENT, AND ASYMPTOMATIC, SALINE LOCKED. UPDATED BOARD. UPDATED PATIENT WITH PLAN OF CARE FOR THE DAY, PATIENT VERBALIZED UNDERSTANDING. SAFETY AND ISOLATION PRECAUTION IN PLACE, CALL LIGHT WITHIN REACH, WILL CONTINUE TO MONITOR PATIENT.
[2017-10-28 07:24] LABS: ANION GAP 11.3 (8-16); CARBON DIOXIDE 30.4 mmol/L (21-32); CREATININE 1.2 mg/dL (0.7-1.3); POTASSIUM 4.7 mmol/L (3.5-5.1)
[2017-10-28 08:00] VITALS: BP 119/87
[2017-10-28 08:15] LABS: MAGNESIUM 1.9 mg/dL (1.8-2.4); PHOSPHORUS 3.8 mg/dL (2.5-4.9)
[2017-10-28] MEDS: ENOXAPARIN 40 MG/0.4 ML SYR SUBQ SCH (09:00)
[2017-10-28] MEDS: SODIUM PHOS / POTASSIUM PHOS 1 PKT PDR PO SCH (09:37)
--- NOTE | 2017-10-28 09:37 | NUR ---
ADMINISTERED ORDERED MEDICATIONS. PATIENT REFUSED LOVENOX BECAUSE HE IS AMBULATING HIMSELF AROUND ROOM AND FLOOR. EDUCATION PROVIDED FOR PATIENT, PATIENT VERBALIZED UNDERSTANDING, BUT STILL REFUSES THE LOVENOX. PATIENT RESTING IN BED, SAFETY AND ISOLATION PRECAUTION IN PLACE, CALL LIGHT WITHIN REACH, WILL CONTINUE TO MONITOR PATIENT.
[2017-10-28] MEDS: HYDROcodone/APAP 5/325 MG 1 TAB TAB PO PRN ×3 (11:54→23:42)
--- NOTE | 2017-10-28 11:54 | NUR ---
PATIENT C/O ABD PAIN 02/21 D/T S/P LAP APPY. NORCO PRN ADMINISTERED. ZOSYN IVPB ADMINISTERED. PATIENT TOLERATED THEM WELL. SAFETY AND ISOLATION PRECAUTION IN PLACE, CALL LIGHT WITHIN REACH, WILL CONTINUE TO MONITOR PATIENT.
--- NOTE | 2017-10-28 12:52 | NUR ---
RECEIVED A CALL FROM DR. RODNEY. SHE SAID THE PATIENT WILL BE GOING HOME TODAY AFTER LAST DOSE OF ANTIBIOTICS. I CALLED [facility] AND LEFT A MESSAGE FOR [facility] [phone].
--- NOTE | 2017-10-28 15:20 | NUR ---
PATIENT AMBULATING AROUND FLOOR. NO SIGNS OF DISTRESS NOTED. WILL CONTINUE TO MONITOR PATIENT.
[2017-10-28 16:00] VITALS: BP 132/86
--- NOTE | 2017-10-28 17:37 | NUR ---
PATIENT C/O ABD PAIN 02/21 D/T S/P LAP APPY. NORCO PRN ADMINISTERED. ZOSYN IVPB ADMINISTERED. PATIENT TOLERATED THEM WELL. FAMILY AT BEDSIDE. SAFETY AND ISOLATION PRECAUTION IN PLACE, CALL LIGHT WITHIN REACH, WILL CONTINUE TO MONITOR PATIENT.
--- NOTE | 2017-10-28 19:20 | NUR ---
REPORT GIVEN TO ASSISTANT PROFESSOR OF ART NURSE AT BEDSIDE FOR CONTINUITY OF CARE. PATIENT IN STABLE CONDITION.
--- NOTE | 2017-10-28 19:21 | NUR ---
RECEIVED REPORT FROM DAY SHIFT RN, PT IS A/OX4, ON ROOM AIR. 22G IV ACCESS TO RIGHT HAND SALINE LOCKED. PT AMBULATES WITH STEADY GAIT, PT IS S/P LAP APPENDECTOMY. UPDATED BOARD. DISCUSSED PLAN OF CARE WITH PT, PT VERBALIZED UNDERSTANDING. VITAL SIGNS WITHIN NORMAL LIMITS. PT IN STABLE CONDITION, NO SIGNS OF DISTRESS NOTED. BED IN LOWEST POSITION, CALL LIGHT WITHIN REACH. WILL CONTINUE TO MONITOR.
[2017-10-28 21:44] VITALS: BP 130/87
--- NOTE | 2017-10-28 22:45 | NUR ---
PT IN STABLE CONDITION, NO SIGNS OF DISTRESS NOTED. BED IN LOWEST POSITION, CALL LIGHT WITHIN REACH. WILL CONTINUE TO MONITOR.
[2017-10-29] VITALS: BP 130/87
--- NOTE | 2017-10-29 | NUR ---
VITAL SIGNS WITHIN NORMAL LIMITS. PT IN STABLE CONDITION, NO SIGNS OF DISTRESS NOTED. BED IN LOWEST POSITION, CALL LIGHT WITHIN REACH. WILL CONTINUE TO MONITOR.
--- NOTE | 2017-10-29 02:00 | NUR ---
PT IN STABLE CONDITION, NO SIGNS OF DISTRESS NOTED. BED IN LOWEST POSITION, CALL LIGHT WITHIN REACH. WILL CONTINUE TO MONITOR.
--- NOTE | 2017-10-29 04:03 | NUR ---
PT IN STABLE CONDITION, NO SIGNS OF DISTRESS NOTED. BED IN LOWEST POSITION, CALL LIGHT WITHIN REACH. WILL CONTINUE TO MONITOR.
--- NOTE | 2017-10-29 05:24 | NUR ---
RECEIVED REPORT OF PT IN STABLE CONDITION.NO DISTRSS NOTED DONTE.CALL LIGHT IN REACH.
[2017-10-29] MEDS: PIPERACILLIN/TAZOBACTAM 4.5 GM in DEXTROSE 5% 100 ML IV SCH (05:39)
--- NOTE | 2017-10-29 06:46 | NUR ---
6 AM ZOSYN GIVEN TO PT.HE TOLERATED WELL.WILL GO HOME TODAY.ALL THE DC PAPERS DONE BY FERCHO MAR.NO C/O PAIN AND/OR ANY DISCOMFORT AT PRESENT TIME.CALL LIGHT WITHIN REACH.
--- NOTE | 2017-10-29 07:12 | NUR ---
RECEIVED REPORT FROM HEM MARKER RN AT BEDSIDE FOR CONTINUITY OF CARE, PATIENT AOX4. DENIES PAIN AT THE MOMENT, R HAND IV INTACT, PATENT, AND ASYMPTOMATIC, SALINE LOCKED. UPDATED BOARD. UPDATED PATIENT WITH PLAN OF CARE FOR THE DAY, PATIENT VERBALIZED UNDERSTANDING. SAFETY AND ISOLATION PRECAUTION IN PLACE, CALL LIGHT WITHIN REACH, WILL CONTINUE TO MONITOR PATIENT.
[2017-10-29 08:00] VITALS: BP 137/95
--- NOTE | 2017-10-29 08:14 | NUR ---
PATIENT AWAKE, ALERT, AND ORIENTED. SITTING UP IN CHAIR AT BEDSIDE. PATIENT STATES NO SOB. PT STATES CONTINUED USE OF INCENTIVE SPIROMETER. NO RESPIRATORY DISTRESS NOTED AT THIS TIME. NO TX INDICATED AT THIS TIME.
--- NOTE | 2017-10-29 08:30 | NUR ---
PATIENT REFUSED 0900 [address] DUE TO BEING DISCHARGED TODAY. PATIENT SITTING IN CHAIR AT BEDSIDE, NO SIGNS OF DISTRESS OR SOB NOTED. SAFETY AND ISOLATION PRECAUTION IN PLACE, CALL LIGHT WITHIN REACH, WILL CONTINUE TO MONITOR PATIENT.
--- NOTE | 2017-10-29 08:55 | NUR ---
PATIENT DISCHARGE INSTRUCTION AND EDUCATION GIVEN. PATIENT VERBALIZED UNDERSTANDING. IV REMOVED, IV CATHETER INTACT, MINIMAL BLEEDING NOTED. ID BANDS CUT. PATIENT WILL NOW CALL FOR HIS SISTER TO BRING CLOTHING, THEN HE WILL CHANGE AND BE DISCHARGED HOME.
[2017-10-29] MEDS: ENOXAPARIN 40 MG/0.4 ML SYR SUBQ SCH (09:00)
--- NOTE | 2017-10-29 09:30 | NUR ---
PATIENT AMBULATED OFF THE FLOOR WITH RN AND SISTER AND NIECE AND NEPHEW BY HIS SIDE. PATIENT TOOK ALL OF HIS BELONGINGS WITH HIM. PATIENT IN STABLE CONDITION.
== END 2017-10-29 09:30 | disposition home or self-care (01) | DRG 338 ==
LOC: MED 18:36 → MTU 21:03
PROVIDERS: ADMIT Family Medicine; ATTEND Family Medicine
PROC: 0DTJ4ZZ Resection of Appendix, Percutaneous Endoscopic Approach (ICD-10-PCS; principal; 2017-10-22)
PROC: 0D9W4ZZ Drainage of Peritoneum, Percutaneous Endoscopic Approach (ICD-10-PCS; 2017-10-22)
DX: K35.2 Acute appendicitis with generalized peritonitis (principal); A41.51 Sepsis due to Escherichia coli [E. coli]; N17.0 Acute kidney failure with tubular necrosis; E83.39 Other disorders of phosphorus metabolism; B96.20 Unspecified Escherichia coli [E. coli] as the cause of diseases classified elsewhere; Z16.12 Extended spectrum beta lactamase (ESBL) resistance; E80.6 Other disorders of bilirubin metabolism; E78.5 Hyperlipidemia, unspecified; I10 Essential (primary) hypertension; E78.00 Pure hypercholesterolemia, unspecified; E86.0 Dehydration
CPT/HCPCS: 36415; 71045; 74018; 76705; 76770; 80048; 80053; 80305; 81001; 82374; 83036; 83690; 83735; 84100; 84436; 84443; 84479; 85025; 85610; 85730; 87040; 87081; 87186; 88304; 93005; 94640; 99285; J0330; J1100; J1170; J1650; J1956; J2175; J2250; J2270; J2405; J2543; J2704; J3010; J3490; J7030; J7060; J7620; Q0092